=== PATIENT | male | born 1950 | race Caucasian/White ===

== ENCOUNTER → 2018-01-31 10:34 | Outpatient (CLI) | payer OTHER, SELFPAY ==
[2018-01-31 11:06] LABS: Add Manual Diff / Slide Review NO; Basophils Percent Auto 0.3 % (0-2); Eosinophils Percent Auto 0.8 % (2-4); Hematocrit 41.9 % (41-53); Hemoglobin 14.3 g/dL (13.5-17.5); Lymphocytes Percent Auto 26.3 % (25-40); Mean Corpuscular HGB Conc 34.1 % (30-36); Mean Corpuscular Hemoglobin 32.3 PG (26-34); Mean Corpuscular Volume 94.7 fL (80-100); Monocytes Percent Auto 6.9 % (3-14); Neutrophils Absolute Auto 3100 /uL (3000-5900); Neutrophils Percent Auto 65.7 % (50-75); Platelet Count 194 X10^3/uL (150-400); Red Blood Cell Count 4.43 X10^6/uL (4.5-5.9); Red Cell Distribution Width 13.4 % (11.6-14.8); White Blood Cell Count 4.8 X10^3/uL (4.5-11.0)
[2018-01-31 11:34] LABS: Alanine Aminotransferase 18 IU/L (21-72); Albumin 4.1 g/dL (3.5-5.0); Albumin Globulin Ratio 1.3 (1.0-2.8); Alkaline Phosphatase 42 U/L (38-126); Aspartate Aminotransferase 24 IU/L (17-59); BUN Creatinine Ratio 23.8 (6-22); Bilirubin Total 1.8 mg/dL (0.2-1.3); Calcium 9.1 mg/dL (8.4-10.2); Estimated Glomerular Filt Rate > 60.0 mL/min (>60); Globulin 3.1 g/dL (1.7-4.1); Glucose 105 mg/dL (80-110); HEMOLYSIS 27 (0-50); Potassium 4.3 mmol/L (3.4-5.1); Sodium 143 mmol/L (137-145); Total Protein 7.2 g/dL (6.3-8.2)
[2018-01-31 12:05] LABS: Carcinoembryonic Antigen 1.1 ng/mL (0.1-3.0)
== END ==
PROVIDERS: Family Provider Specialist; PCP Family Medicine; Visit Provider Internal Medicine Hematology & Oncology
DX: C18.9 Malignant neoplasm of colon, unspecified (principal)
CPT/HCPCS: 80053; 82378; 85025

== ENCOUNTER → 2018-08-09 10:36 | Outpatient (CLI) | payer OTHER, SELFPAY ==
--- NOTE | 2018-08-09 10:40 | DI.CT.S_ITS ---
PROCEDURE: CT CHEST ABD PEL W CON INDICATIONS: Stage II colon cancer resected Jun 2016 TECHNIQUE: After the administration of oral and intravenous contrast, 5 mm thick sections acquired from the lung apices to the symphysis. 5 mm coronal and sagittal reformats were performed, with additional 7 mm coronal MIP reformats through the lungs. For radiation dose reduction, the following was used: automated exposure control, adjustment of mA and/or kV according to patient size. COMPARISON: [facility], CT, ABDOMEN/PELVIS WITH CONTRAST, 06/17/2016, 11:45. [facility], CT, CHEST/ABD/PEL WITH CONTRAST, 07/04/2017, 15:05. FINDINGS: Image quality: Excellent. CHEST: Lungs and pleura: No acute airspace opacities. No pleural effusions or pneumothorax. Central and peripheral airways appear patent and normal in caliber. Previous groundglass opacity in the right middle lobe has resolved. There is an unchanged 6 mm nodule along the right major fissure. Mediastinum: Heart size is normal. No pericardial effusion. No mediastinal or hilar adenopathy by size criteria. Thoracic aorta and central pulmonary arteries are normal in size. Esophagus is normal in caliber. No hiatal hernia. Chest wall: No axillary or supraclavicular adenopathy by size criteria. Thyroid gland demonstrates unchanged right inferior lobe low attenuation focus as well as a similar smaller area in the inferior anterior left lobe/isthmus junction. ABDOMEN: Solid organs: Liver is mildly prominent. Hepatic steatosis is present. Gallbladder is unremarkable. Biliary system is non dilated. Pancreas enhances normally. Spleen is borderline in size, unchanged. No adrenal nodules. Kidneys demonstrate normal size and enhancement, without hydronephrosis. Peritoneum and bowel: Bowel loops demonstrate normal wall thickness and caliber. No free fluid or air. Right hemicolectomy changes are present. Nodes and vessels: No retroperitoneal or mesenteric adenopathy by size criteria. Aorta and inferior vena cava are normal in size. Miscellaneous: No ventral hernias. PELVIS: Genitourinary: Bladder wall thickness is normal. Miscellaneous: No inguinal hernias or adenopathy. Bones: No suspicious bony lesions. No vertebral body compression fractures. IMPRESSION: 1. Stable exam compared to 07/04/17 without evidence of recurrent disease. 2. Unchanged 6 mm nodule along the right major fissure. 3. Postsurgical changes reflecting right hemicolectomy. Dictated by: Carlota Andrews M.D. on 08/09/2018 at 15:07 Approved by: Carlota Andrews M.D. on 08/09/2018 at 15:40
[2018-08-09 11:06] LABS: Add Manual Diff / Slide Review NO; Basophils Percent Auto 0.3 % (0-2); Hematocrit 42.8 % (41-53); Hemoglobin 14.9 g/dL (13.5-17.5); Lymphocytes Percent Auto 27.8 % (25-40); Mean Corpuscular HGB Conc 34.8 % (30-36); Mean Corpuscular Hemoglobin 32.7 PG (26-34); Mean Corpuscular Volume 93.9 fL (80-100); Monocytes Percent Auto 8.3 % (3-14); Neutrophils Absolute Auto 3500 /uL (3000-5900); Neutrophils Percent Auto 62.6 % (50-75); Platelet Count 204 X10^3/uL (150-400); Red Blood Cell Count 4.56 X10^6/uL (4.5-5.9); Red Cell Distribution Width 12.8 % (11.6-14.8); White Blood Cell Count 5.6 X10^3/uL (4.5-11.0)
[2018-08-09 11:21] LABS: Alanine Aminotransferase 24 IU/L (21-72); Albumin 4.5 g/dL (3.5-5.0); Albumin Globulin Ratio 1.6 (1.0-2.8); Alkaline Phosphatase 47 U/L (38-126); Aspartate Aminotransferase 25 IU/L (17-59); Bilirubin Total 2.1 mg/dL (0.2-1.3); Blood Urea Nitrogen 16 mg/dL (9-20); Calcium 9.2 mg/dL (8.4-10.2); Carbon Dioxide 29 mmol/L (22-32); Chloride 105 mmol/L (98-107); Estimated Glomerular Filt Rate > 60.0 mL/min (>60); Globulin 2.8 g/dL (1.7-4.1); Glucose 97 mg/dL (80-110); HEMOLYSIS < 15 (0-50); Potassium 4.5 mmol/L (3.4-5.1); Sodium 145 mmol/L (137-145); Total Protein 7.3 g/dL (6.3-8.2)
[2018-08-09 11:52] LABS: Carcinoembryonic Antigen 1.2 ng/mL (0.1-3.0)
== END ==
PROVIDERS: Internal Medicine Hematology & Oncology; Family Provider Internal Medicine Hematology & Oncology; PCP Family Medicine; Visit Provider Internal Medicine Hematology & Oncology
DX: C18.9 Malignant neoplasm of colon, unspecified (principal); R91.1 Solitary pulmonary nodule; K76.0 Fatty (change of) liver, not elsewhere classified
CPT/HCPCS: 36415; 71260; 74177; 80053; 82378; 85025; Q9967

== ENCOUNTER → 2019-08-15 10:54 | Outpatient (CLI) | payer OTHER, SELFPAY ==
--- NOTE | 2019-08-15 10:56 | DI.CT.S_ITS ---
PROCEDURE: CT CHEST ABD PEL W CON INDICATIONS: Colon cancer surveillance TECHNIQUE: After the administration of oral and intravenous contrast, 5 mm thick sections acquired from the lung apices to the symphysis. 5 mm coronal and sagittal reformats were performed, with additional 7 mm coronal MIP reformats through the lungs. For radiation dose reduction, the following was used: automated exposure control, adjustment of mA and/or kV according to patient size. COMPARISON: [facility], CT, CT CHEST ABD PEL W CON, 08/09/2018, 11:52. FINDINGS: Image quality: Excellent. CHEST: Lungs and pleura: No acute airspace opacities. Right major fissure lymph node. No pleural effusions or pneumothorax. Central and peripheral airways appear patent and normal in caliber. Mediastinum: Heart size is normal. Mild coronary artery calcification. No pericardial effusion. Stable, small right infrahilar lymph node. No mediastinal or hilar adenopathy by size criteria. Thoracic aorta and central pulmonary arteries are normal in size. Esophagus is normal in caliber. No hiatal hernia. Chest wall: No axillary or supraclavicular adenopathy by size criteria. Thyroid gland is stable. ABDOMEN: Solid organs: Liver is normal in size and enhancement. Gallbladder is unremarkable. Biliary system is non dilated. Pancreas enhances normally. Spleen is normal in size and enhancement. No adrenal nodules. Kidneys demonstrate normal size and enhancement, without hydronephrosis. Peritoneum and bowel: Surgical changes of right hemicolectomy. Bowel loops demonstrate normal wall thickness and caliber. No free fluid or air. Nodes and vessels: No retroperitoneal or mesenteric adenopathy by size criteria. Aorta and inferior vena cava are normal in size. Miscellaneous: No ventral hernias. PELVIS: Genitourinary: The urinary bladder is decompressed.. Surgical changes of prostatectomy. Miscellaneous: No inguinal hernias or adenopathy. Bones: No suspicious bony lesions. No vertebral body compression fractures. Degenerative changes in the hip joints. IMPRESSION: 1. Post prostatectomy and right hemicolectomy without evidence of local recurrence or metastatic disease. 2. Mild coronary artery calcification. Dictated by: Neisha Gill M.D. on 08/15/2019 at 14:35 Approved by: Neisha Gill M.D. on 08/15/2019 at 14:44
[2019-08-15 12:10] LABS: Add Manual Diff / Slide Review NO; Basophils Absolute Auto 0 /uL (0-100); Basophils Percent Auto 0.3 % (0-2); Eosinophils Absolute Auto 0 /uL (0-450); Eosinophils Percent Auto 0.7 % (2-4); Hemoglobin 14.4 g/dL (13.5-17.5); Lymphocytes Absolute Auto 1500 /uL (1100-4500); Lymphocytes Percent Auto 26.6 % (25-40); Mean Corpuscular HGB Conc 34.3 % (30-36); Mean Corpuscular Hemoglobin 32.5 PG (26-34); Mean Corpuscular Volume 94.8 fL (80-100); Monocytes Absolute Auto 400 /uL (0-900); Monocytes Percent Auto 7.6 % (3-14); Neutrophils Absolute Auto 3700 /uL (1500-7000); Neutrophils Percent Auto 64.8 % (50-75); Platelet Count 201 X10^3/uL (150-400); Red Blood Cell Count 4.43 X10^6/uL (4.5-5.9); Red Cell Distribution Width 12.7 % (11.6-14.8); White Blood Cell Count 5.8 X10^3/uL (4.5-11.0)
[2019-08-15 12:20] LABS: Alanine Aminotransferase 12 IU/L (<50); Albumin 4.3 g/dL (3.5-5.0); Albumin Globulin Ratio 1.5 (1.0-2.8); Alkaline Phosphatase 46 U/L (38-126); Aspartate Aminotransferase 22 IU/L (17-59); Blood Urea Nitrogen 16 mg/dL (9-20); Calcium 9.3 mg/dL (8.4-10.2); Carbon Dioxide 30 mmol/L (22-32); Chloride 102 mmol/L (98-107); Estimated Glomerular Filt Rate > 60.0 mL/min (>60); Globulin 2.8 g/dL (1.7-4.1); Glucose 96 mg/dL (80-110); HEMOLYSIS < 15 (0-50); Sodium 140 mmol/L (137-145); Total Protein 7.1 g/dL (6.3-8.2)
[2019-08-15 12:53] LABS: Carcinoembryonic Antigen 1.1 ng/mL (0.1-3.0)
== END ==
PROVIDERS: PCP Family Medicine
DX: C18.9 Malignant neoplasm of colon, unspecified (principal); I25.10 Atherosclerotic heart disease of native coronary artery without angina pectoris
CPT/HCPCS: 36415; 71260; 74177; 80053; 82378; 85025; Q9967

== ENCOUNTER → 2020-10-28 11:17 | Outpatient (CLI) | payer MEDICARE, OTHER, SELFPAY ==
--- NOTE | 2020-10-28 11:18 | DI.CT.S_ITS ---
PROCEDURE: CT CHEST ABD PEL W CON INDICATIONS: Monitoring stage II colon cancer TECHNIQUE: After the administration of oral and intravenous contrast, 5 mm thick sections acquired from the lung apices to the symphysis. 5 mm coronal and sagittal reformats were performed, with additional 7 mm coronal MIP reformats through the lungs. For radiation dose reduction, the following was used: automated exposure control, adjustment of mA and/or kV according to patient size. COMPARISON: [facility], CT, CT CHEST ABD PEL W CON, 08/09/2018, 11:52. [facility], CT, CHEST/ABD/PEL WITH CONTRAST, 07/04/2017, 15:05. CT, ABDOMEN/PELVIS WITH CONTRAST, 06/17/2016, 11:45. [facility], CT, CT CHEST ABD PEL W CON, 08/15/2019, 12:22. FINDINGS: Image quality: Excellent. CHEST: Lungs and pleura: No acute airspace opacities. No pleural effusions or pneumothorax. Central and peripheral airways appear patent and normal in caliber. Mediastinum: Heart size is normal. No pericardial effusion. No mediastinal or hilar adenopathy by size criteria. Thoracic aorta and central pulmonary arteries are normal in size. Esophagus is normal in caliber. No hiatal hernia. Chest wall: No axillary or supraclavicular adenopathy by size criteria. Thyroid gland demonstrates a punctate calcification within the inferior left lower lobe, unchanged . ABDOMEN: Solid organs: Liver is normal in size and enhancement. Gallbladder is unremarkable . Biliary system is non dilated. Pancreas enhances normally. Spleen is normal in size and enhancement. No adrenal nodules. Kidneys demonstrate normal size and enhancement, without hydronephrosis. Peritoneum and bowel: Bowel loops demonstrate normal wall thickness and caliber. No free fluid or air. Diverticulosis is present. Surgical changes reflecting right hemicolectomy in prostatectomy are noted. Nodes and vessels: No retroperitoneal or mesenteric adenopathy by size criteria. Aorta and inferior vena cava are normal in size. Miscellaneous: No ventral hernias. PELVIS: Genitourinary: Bladder wall thickness is normal. Miscellaneous: No inguinal hernias or adenopathy. Bones: Unchanged punctate lucency at the level of L3 in the right posterior vertebral body, unchanged since 2016 and likely related to degenerative change. No vertebral body compression fractures. IMPRESSION: 1. Stable interval exam. 2. Diverticulosis. Dictated by: Carlota Andrews M.D. on 10/28/2020 at 15:08 Approved by: Carlota Andrews M.D. on 10/28/2020 at 15:14
== END ==
PROVIDERS: PCP Family Medicine; Referring Provider Internal Medicine; Visit Provider Internal Medicine
DX: C18.9 Malignant neoplasm of colon, unspecified (principal); K57.90 Diverticulosis of intestine, part unspecified, without perforation or abscess without bleeding
CPT/HCPCS: 71260; 74177; Q9967

== ENCOUNTER → 2020-11-17 13:15 | Outpatient (CLI) | payer MEDICARE, OTHER, SELFPAY ==
[2020-11-17 14:54] LABS: COVID19 -Nasal RAPID Negative (Negative)
== END ==
PROVIDERS: PCP Family Medicine; Visit Provider Surgery
DX: Z20.822 Contact with and (suspected) exposure to COVID-19 (principal)
CPT/HCPCS: 87635; C9803

== ENCOUNTER 2020-11-20 12:01 | Day surgery (SDC) | payer MEDICARE, OTHER, SELFPAY ==
[2020-11-20] VITALS (7 sets, daily range): BP systolic 104–129; BP diastolic 63–77; PULSE 71–98; RESP 10–17; TEMP 36.4–37; O2SAT 97–99; BMI 23.0
--- NOTE | 2020-11-20 | PATH_ITS ---
[facility] Accession Number: [id number] . 01 Material submitted: . PART A: colon - POLYP AT 100 PART B: rectum - RECTAL POLYP . 01 Clinical history: . SDC . 02 Diagnosis: A. Colon Polyp at 100 cm, Biopsy: Tubular adenoma. . B. Rectal Polyp, Biopsy: Hyperplastic polyp. MRV 11/24/2020 1223 Local . 02 Electronically signed: . Erich Martin MD, PhD, Pathologist NPI- [id number] . 01 Gross description: . A. Specimen A is received in formalin labeled polyp at 100 cm and consists of four fitch-pink fragments of soft tissue, measuring 1.0 x 0.8 x 0.2 cm in aggregate. The specimen is entirely submitted in cassette A1. B. Specimen B is received in formalin labeled rectal polyp and consists of two fitch-pink fragments of soft tissue, measuring 0.6 x 0.5 x 0.2 cm in aggregate. The specimen is entirely submitted in cassette B1. ([id number]) /[facility] 11/21/2020 1813 Local . 02 Pathologist provided ICD-10: D12.6, K62.1 . 02 CPT . 851406, 241700 Performed at: 01 [facility] [address], [place], [place] [id number] MD Jacinto Luke MD Phone: [phone] Performed at: 02 [facility] [address] [place], [place] [id number] MD Neha Dia MD Phone: [phone]
[2020-11-20] MEDS: LACTATED RINGERS 1,000 ML 200 ML IV (12:29)
--- NOTE | 2020-11-20 13:02 | PM.HP.1 ---
History of Present Illness History of Present Illness Date Patient Seen: 11/20/20 Time Patient Seen: 13:02 Chief complaint: SDC Narrative: The patient presents for colorectal sreening. History of stage II colon cancer status post right hemicolectomy 2013 at an outside facility has been followed by Oncology for surveillance. Last colonoscopy 2016 demonstrated adenomatous polyp. On further history denies any recent gastrointestinal symptoms. No nausea, vomiting, abdominal pain, loss of appetite, unexplained weight loss, change in bowel habits, diarrhea, constipation, melena, hematochezia, or bright red blood per rectum. Patient History Medical History Colon cancer Prostate cancer Surgical History H/O colectomy Family & Social History Social History: household members spouse Tobacco & Substance use: Smoking Status Never smoker alcohol intake current alcohol intake frequency 0-2 drinks per day Substance Use Type does not use Meds Home Medications and Allergies Home Medications Medication Instructions Recorded Confirmed Type OMEGA-3 FATTY ACIDS (FISH OIL) 500 mg PO Q DAY #0 07/29/16 11/20/20 History cholecalciferol (vitamin D3) 50 mcg PO DAILY 10/21/20 11/20/20 History [Vitamin D3] Allergies Allergy/AdvReac Type Severity Reaction Status Date / Time No Known Drug Allergies Allergy Verified 11/20/20 12:18 Review of Systems Review of Systems ROS: Yes All systems reviewed with the patient and are negative except as otherwise documented Exam Vital Signs (past 8 hours): - 11/20/20 12:20 Temperature 98.4 F Pulse Rate 98 H Respiratory Rate 16 Blood Pressure 127/68 Pulse Oximetry 99 Oxygen Delivery Method Room Air Narrative Exam Narrative: General-no acute distress, well nourished adult male HEENT-moist mucous membranes, no scleral icterus Neck-supple, no lymphadenopathy Chest- non labored respirations, clear to auscultation bilaterally Cardiac-regular rate no peripheral edema Abdomen-soft, nontender, non distended Extremities-warm, well perfused Neurological-alert and oriented, no focal deficits Assessment & Plan Assessment & Plan narrative: 70-year-old male who history of stage II colon cancer 2014 status post right hemicolectomy here for screening colonoscopy. Technical details were discussed. Risks, benefits, alternatives explained. Risks including but not limited to myocardial infarction, aspiration, bleeding, pain, missed lesion, incomplete examination, need for further radiographic studies, colonic perforation, and need for major abdominal surgery were discussed. All questions were answered to their satisfaction, and they are in agreement with this plan.
[2020-11-20] MEDS: MIDAZOLAM 5 MG/5 ML VIAL IV (13:13)
[2020-11-20] MEDS: fentaNYL 250 MCG/5 ML INJ IV (13:15)
--- NOTE | 2020-11-20 13:34 | P.OP.ENDO_ITS ---
Operative Date/Time/Diagnoses Date of procedure: 11/20/20 Time of procedure: 13:34 Pre-op diagnosis: hx of colon cancer, personal history of colonic polyps Post-op diagnosis: same Procedure & Clinicians Study performed: Colonoscopy Polypectomy Same procedure as scheduled: Yes Indications: 70-year-old man history of right-sided colon cancer stage II 2014 status post hemicolectomy and personal history of colonic polyps last colonoscopy was 2016. Surgeon: Kyle Ch Procedure Notes Procedure in detail: Medications: Conscious sedation using 4mg IV midazolam and 150mcg IV of fentanyl The history and physical was performed/updated and the patient is ASA class is 2. The procedure was discussed in detail with the patient. Potential risks complications including infection, bleeding, missed diagnosis, perforation, need for surgery, and were explained. Their questions were answered and informed consent was obtained. Patient was brought to the procedure room and placed standard monitoring equipment. The patient's vital signs were monitored continuously throughout the entire procedure. Prior to starting time-out was performed. The patient was placed in the left lateral recumbent position. Procedural sedation was ad ministered. Examination began with a thorough inspection of the perianal area there was no evidence of fissures, fistulae, external hemorrhoids or cutaneous malignancy. The colonoscopy scope was then placed into the anal canal and was advanced to the end of the colon. There appeared to be a [id number] anastomosis between the cecum and small bowel. The scope was then slowly withdrawn examining colon thoroughly in all directions, irrigating it of any residual stool. 5 mm polyp at 100 cm was removed with biopsy forceps 3 mm polyp at the distal rectum removed with biopsy forceps The patient tolerated the procedure well. They will be discharged once criteria are met. The prep was of good/excellent quality. The withdrawl time was 12 minutes. The sedation time was 24 minutes. Specimen(s): other (100 cm, rectal polyps) Complications: none Impression: Colonic polyps Post-procedure Recommendations: Colonscopy in 5 years Disposition: same day surgery
== END 2020-11-20 14:30 | disposition home or self-care (01) ==
PROVIDERS: PCP Family Medicine; Referring Provider Surgery; Visit Provider Surgery
PROC: 0DJD8ZZ Inspection of Lower Intestinal Tract, Via Natural or Artificial Opening Endoscopic (ICD-10-PCS; CPT 45378; principal; 2020-11-20 13:00)
DX: Z12.11 Encounter for screening for malignant neoplasm of colon (principal); Z85.038 Personal history of other malignant neoplasm of large intestine; Z86.010 Personal history of colon polyps; D12.6 Benign neoplasm of colon, unspecified; K62.1 Rectal polyp
CPT/HCPCS: 45380; 99152; J2250; J3010

== ENCOUNTER → 2021-05-05 19:15 | Outpatient (ROUT) | payer MEDICARE, OTHER, SELFPAY ==
[2021-05-05 19:37] LABS: Add Manual Diff / Slide Review NO; Basophils Absolute Auto 0 /uL (0-100); Basophils Percent Auto 0.3 % (0-2); Eosinophils Absolute Auto 0 /uL (0-450); Eosinophils Percent Auto 0.6 % (2-4); Hematocrit 43.9 % (41-53); Hemoglobin 14.5 g/dL (13.5-17.5); Lymphocytes Absolute Auto 1300 /uL (1100-4500); Lymphocytes Percent Auto 20.7 % (25-40); Mean Corpuscular Hemoglobin 31.7 PG (26-34); Monocytes Absolute Auto 500 /uL (0-900); Monocytes Percent Auto 8.4 % (3-14); Neutrophils Absolute Auto 4500 /uL (1500-7000); Platelet Count 202 X10^3/uL (150-400); Red Blood Cell Count 4.57 X10^6/uL (4.5-5.9); Red Cell Distribution Width 13.1 % (11.6-14.8); White Blood Cell Count 6.5 X10^3/uL (4.5-11.0)
[2021-05-05 19:38] LABS: Alanine Aminotransferase 13 IU/L (<50); Albumin 4.2 g/dL (3.5-5.0); Albumin Globulin Ratio 1.4 (1.0-2.8); Alkaline Phosphatase 54 U/L (38-126); Aspartate Aminotransferase 25 IU/L (17-59); BUN Creatinine Ratio 27.1 (6-22); Bilirubin Total 2.1 mg/dL (0.2-1.3); Blood Urea Nitrogen 19 mg/dL (9-20); Calcium 9.7 mg/dL (8.4-10.2); Carbon Dioxide 29 mmol/L (22-32); Chloride 104 mmol/L (98-107); Estimated Glomerular Filt Rate > 60.0 mL/min (>60); Glucose 95 mg/dL (80-110); HEMOLYSIS < 15 (0-50); Potassium 4.3 mmol/L (3.4-5.1); Sodium 139 mmol/L (137-145); Total Protein 7.2 g/dL (6.3-8.2)
[2021-05-05 20:09] LABS: Carcinoembryonic Antigen 1.2 ng/mL (0.1-3.0)
[2021-05-05 20:10] LABS: Prostate Specific Antigen < 0.064 ng/mL (0.10-4.00)
== END ==
PROVIDERS: PCP Family Medicine; Visit Provider Internal Medicine Medical Oncology
DX: C61 Malignant neoplasm of prostate (principal)
CPT/HCPCS: 80053; 82378; 84153; 85025

== ENCOUNTER → 2023-06-16 09:59 | Outpatient (CLI) | payer MEDICARE, OTHER, SELFPAY ==
[2023-06-16 19:42] LABS: Add Manual Diff / Slide Review NO; Basophils Absolute Auto 0 /uL (0-100); Basophils Percent Auto 0.3 % (0-2); Eosinophils Absolute Auto 100 /uL (0-450); Hematocrit 40.9 % (41-53); Hemoglobin 14.1 g/dL (13.5-17.5); Lymphocytes Absolute Auto 1500 /uL (1100-4500); Lymphocytes Percent Auto 22.4 % (25-40); Mean Corpuscular HGB Conc 34.4 % (30-36); Mean Corpuscular Hemoglobin 31.8 PG (26-34); Mean Corpuscular Volume 92.5 fL (80-100); Monocytes Absolute Auto 500 /uL (0-900); Monocytes Percent Auto 7.4 % (3-14); Neutrophils Absolute Auto 4600 /uL (1500-7000); Neutrophils Percent Auto 68.9 % (50-75); Platelet Count 225 X10^3/uL (150-400); Red Blood Cell Count 4.42 X10^6/uL (4.5-5.9); Red Cell Distribution Width 12.7 % (11.6-14.8); White Blood Cell Count 6.7 X10^3/uL (4.5-11.0)
[2023-06-16 19:47] LABS: Alanine Aminotransferase 9 IU/L (<50); Albumin 3.9 g/dL (3.5-5.0); Albumin Globulin Ratio 1.3 (1.0-2.8); Alkaline Phosphatase 62 U/L (38-126); Aspartate Aminotransferase 23 IU/L (17-59); BUN Creatinine Ratio 28.9 (6-22); Bilirubin Total 1.8 mg/dL (0.2-1.3); Blood Urea Nitrogen 22 mg/dL (9-20); C-Reactive Protein Quant < 0.5 mg/dL (<1.0); Calcium 9.4 mg/dL (8.4-10.2); Carbon Dioxide 30 mmol/L (22-32); Chloride 103 mmol/L (98-107); Estimated Glomerular Filt Rate > 60 mL/min (>60); Glucose 93 mg/dL (80-110); HEMOLYSIS 23 (0-50); Potassium 4.2 mmol/L (3.4-5.1); Sodium 140 mmol/L (137-145); Total Protein 6.9 g/dL (6.3-8.2)
[2023-06-16 20:15] LABS: Prostate Specific Antigen 0.107 ng/mL (0.10-4.00)
[2023-06-16 20:17] LABS: TSH w/ Reflex to FT4 2.04 uIU/mL (0.47-4.68)
[2023-06-16 20:48] LABS: Erythrocyte Sedimentation Rate 9 MM/HR (0-15)
[2023-06-20 16:54] LABS: Hep C Virus Ab w/Reflex Quant NEGATIVE s/c (NEGATIVE)
== END ==
PROVIDERS: PCP Family Medicine; Visit Provider Family Medicine
DX: Z85.46 Personal history of malignant neoplasm of prostate (principal); G24.5 Blepharospasm; R53.83 Other fatigue; Z85.038 Personal history of other malignant neoplasm of large intestine; Z13.1 Encounter for screening for diabetes mellitus; Z11.59 Encounter for screening for other viral diseases; Z13.220 Encounter for screening for lipoid disorders; M79.10 Myalgia, unspecified site
CPT/HCPCS: 80053; 84153; 84443; 85025; 85651; 86140; 86803

== ENCOUNTER → 2025-01-17 12:55 | Outpatient (CLI) | payer MEDICARE, OTHER, SELFPAY ==
[2025-01-17 13:16] LABS: Hemoglobin 8.4 g/dL (13.5-17.5)
== END ==
PROVIDERS: PCP Family Medicine; Referring Provider Internal Medicine Nephrology; Visit Provider Internal Medicine Nephrology
DX: N17.0 Acute kidney failure with tubular necrosis (principal); Z99.2 Dependence on renal dialysis
CPT/HCPCS: 36415; 85014; 85018

== ENCOUNTER → 2025-01-30 14:37 | Outpatient (CLI) | payer MEDICARE, OTHER, SELFPAY ==
[2025-01-30 20:30] LABS: HEMOLYSIS < 15 (0-50); Iron 75 ug/dL (49-181)
[2025-01-30 20:36] LABS: Alanine Aminotransferase 12 IU/L (<50); Albumin 3.1 g/dL (3.5-5.0); Albumin Globulin Ratio 1.1 (1.0-2.8); Alkaline Phosphatase 64 U/L (38-126); Aspartate Aminotransferase 18 IU/L (17-59); Bilirubin Total 0.6 mg/dL (0.2-1.3); Bilirubin Unconjugated 0.3 mg/dL (0.0-1.1); Globulin 2.9 g/dL (1.7-4.1); HEMOLYSIS < 15 (0-50)
[2025-01-30 21:07] LABS: Percent Iron Saturation 34 % (20-50); Total Iron Binding Capacity 222 ug/dL (261-462); Transferrin 164 mg/dL (206-381)
[2025-01-30 21:25] LABS: TSH w/ Reflex to FT4 3.37 uIU/mL (0.47-4.68)
[2025-01-30 21:44] LABS: Vitamin B12 429 pg/mL (239-931)
== END ==
PROVIDERS: PCP Family Medicine; Visit Provider Family Medicine
DX: D64.9 Anemia, unspecified (principal); N17.9 Acute kidney failure, unspecified
CPT/HCPCS: 80076; 82607; 83540; 83550; 84443

== ENCOUNTER → 2025-02-06 14:00 | Outpatient (CLI) | payer MEDICARE, OTHER, SELFPAY ==
[2025-02-08 13:40] LABS: Fecal Immunochemical Test Positive (Negative)
== END ==
PROVIDERS: PCP Family Medicine; Visit Provider Family Medicine
DX: N17.9 Acute kidney failure, unspecified (principal); D64.9 Anemia, unspecified
CPT/HCPCS: 82274

== ENCOUNTER 2025-02-08 10:22 | Emergency (ER) | payer MEDICARE, OTHER, SELFPAY ==
[2025-02-08] VITALS (21 sets, daily range): BP systolic 121–168; BP diastolic 57–81; PULSE 60–84; RESP 13–24; TEMP 36.4–36.9; O2SAT 99–100; BMI 22.1
[2025-02-08 11:06] LABS: Add Manual Diff / Slide Review NO; Basophils Absolute Auto 0 /uL (0-100); Basophils Percent Auto 0.2 % (0-2); Eosinophils Absolute Auto 100 /uL (0-450); Eosinophils Percent Auto 1.4 % (2-4); Hemoglobin 7.1 g/dL (13.5-17.5); Lymphocytes Absolute Auto 1500 /uL (1100-4500); Lymphocytes Percent Auto 22.9 % (25-40); Mean Corpuscular Hemoglobin 33.6 PG (26-34); Mean Corpuscular Volume 96.1 fL (80-100); Monocytes Absolute Auto 700 /uL (0-900); Neutrophils Absolute Auto 4300 /uL (1500-7000); Neutrophils Percent Auto 64.5 % (50-75); Platelet Count 203 X10^3/uL (150-400); Red Cell Distribution Width 15.4 % (11.6-14.8); White Blood Cell Count 6.6 X10^3/uL (4.5-11.0)
[2025-02-08 11:08] LABS: Hematocrit 20.2 % (41-53)
[2025-02-08 11:17] LABS: INR 1.1 (0.9-1.3); Prothrombin Time 12.4 SECONDS (9.4-12.5)
[2025-02-08 11:19] LABS: PTT Partial Thromboplastin Tim 33 SECONDS (25.1-36.5)
--- NOTE | 2025-02-08 14:19 | ED_ITS ---
HPI - Recheck/Abnormal Lab/Rx <Pao Mas MD - Last Filed: 02/10/25 16:46> General Chief Complaint: Recheck/Abnormal Lab/Rx Stated Complaint: on dialysis, hgb 6.5 on recent labs sent from dr. Castellanos Seen by Provider: 02/08/25 14:13 Source: patient and RN notes reviewed History of Present Illness HPI narrative: 75-year-old male history of end-stage renal disease on intermittent hemodialysis, presenting to the ED with low hemoglobin. Patient reports had some routine labs done today and was found to have a hemoglobin of 6.5, was referred to ED by his event technician. He denies any increased weakness or fatigue, exertional dyspnea. Denies any black tarry stools. He has no complaints today Related Data Home Medications Medication Instructions Recorded Confirmed brimonidine 0.2 % eye drops drp EYE-BOTH TID 01/22/25 01/23/25 dorzolamide 2 %-timolol 0.5 % (PF) drp EYE-BOTH BID 01/22/25 01/23/25 eye drops latanoprost 0.005 % eye drops drp EYE-BOTH DAILY 01/22/25 01/23/25 midodrine 10 mg tablet 10 mg PO TID 01/22/25 01/23/25 Previous Rx's Medication Instructions Recorded albuterol sulfate 90 mcg/actuation 2 puff inhalation Q6H PRN 01/23/25 aerosol inhaler shortness of breath or wheezing #8.5 grams amiodarone 200 mg tablet 200 mg PO DAILY #30 tabs 01/23/25 sevelamer carbonate 0.8 gram oral See Rx Instructions .Route 01/23/25 powder packet .COMPLEX #90 ea apixaban 5 mg tablet 5 mg PO BID #10 tabs 02/06/25 Allergies Allergy/AdvReac Type Severity Reaction Status Date / Time No Known Drug Allergies Allergy Verified 01/23/25 08:03 Patient History <Pao Mas MD - Last Filed: 02/10/25 16:46> Surgical History H/O colectomy Social History household members: spouse Smoking Status: Never smoker alcohol intake: current Smoking Status: Never smoker alcohol intake frequency: 0-2 drinks per day Exam <Pao Mas MD - Last Filed: 02/10/25 16:46> Initial Vital Signs Initial Vital Signs: Vital Signs Temperature 98.4 F 02/08/25 10:29 Pulse Rate 82 02/08/25 10:29 Respiratory Rate 18 02/08/25 10:29 Blood Pressure 127/71 02/08/25 10:29 Pulse Oximetry 99 02/08/25 10:29 Oxygen Delivery Method Room Air 02/08/25 10:29 Constitutional: Well appearing, no acute distress Head: NCAT Cardiovascular: RRR, no murmur or rub Pulmonary: CTA bilaterally, no respiratory distress Abdominal: soft, non-tender Extremities: 2+ pitting edema lower extremities Skin: warm and dry, no diaphoresis Neurological: Alert and oriented x3 <Marianne Fontaine DO - Last Filed: 02/08/25 20:26> Initial Vital Signs Initial Vital Signs: Vital Signs Temperature 98.4 F 02/08/25 10:29 Pulse Rate 82 02/08/25 10:29 Respiratory Rate 18 02/08/25 10:29 Blood Pressure 127/71 02/08/25 10:29 Pulse Oximetry 99 02/08/25 10:29 Oxygen Delivery Method Room Air 02/08/25 10:29 Course <Pao Mas MD - Last Filed: 02/10/25 16:46> Orders Ordered: Discontinued Medications Ondansetron HCl (Ondansetron 4 Mg/2 Ml Inj) 4 mg IV NOW PRN PRN Reason: Nausea And Vomiting Ondansetron HCl (Ondansetron 4 Mg Odt) 4 mg PO NOW PRN PRN Reason: Nausea And Vomiting Vital Signs Vital signs: Vital Signs - 8 hr 02/08/25 13:56 02/08/25 14:00 02/08/25 14:22 Temperature Pulse Rate 77 81 Respiratory Rate 24 Blood Pressure 133/61 Pulse Oximetry 99 100 02/08/25 14:22 02/08/25 14:30 02/08/25 14:30 Temperature Pulse Rate 81 78 Respiratory Rate 20 16 Blood Pressure 121/62 Pulse Oximetry 100 100 02/08/25 15:00 02/08/25 15:00 02/08/25 15:28 Temperature Pulse Rate 78 Respiratory Rate Blood Pressure 123/57 L 136/65 Pulse Oximetry 100 02/08/25 15:28 02/08/25 15:30 02/08/25 15:30 Temperature Pulse Rate 80 81 Respiratory Rate 15 13 Blood Pressure 131/64 Pulse Oximetry 100 100 02/08/25 15:37 02/08/25 15:37 02/08/25 15:42 Temperature 98 F 98 F Pulse Rate 79 79 Respiratory Rate 16 16 Blood Pressure 131/64 131/64 126/63 Pulse Oximetry 02/08/25 15:42 02/08/25 15:45 02/08/25 15:45 Temperature Pulse Rate 79 80 Respiratory Rate 13 15 Blood Pressure 128/61 Pulse Oximetry 100 100 02/08/25 15:56 02/08/25 16:00 02/08/25 16:00 Temperature 97.6 F Pulse Rate 60 80 Respiratory Rate 16 14 Blood Pressure 128/61 129/62 Pulse Oximetry 100 02/08/25 16:15 02/08/25 16:15 02/08/25 16:30 Temperature Pulse Rate 80 76 Respiratory Rate 13 Blood Pressure 128/60 Pulse Oximetry 100 100 02/08/25 16:30 02/08/25 16:45 02/08/25 16:45 Temperature Pulse Rate 80 Respiratory Rate 18 Blood Pressure 137/69 130/64 Pulse Oximetry 100 02/08/25 17:00 02/08/25 17:00 02/08/25 17:30 Temperature Pulse Rate 78 Respiratory Rate 16 Blood Pressure 145/71 H 152/81 H Pulse Oximetry 100 02/08/25 17:30 02/08/25 17:34 02/08/25 17:49 Temperature 98 F 98.4 F Pulse Rate 80 80 74 Respiratory Rate 14 16 16 Blood Pressure 152/81 H 150/74 H Pulse Oximetry 100 02/08/25 20:05 Temperature 97.9 F Pulse Rate 84 Respiratory Rate 16 Blood Pressure 168/79 H Pulse Oximetry <Marianne Fontaine, - Last Filed: 02/08/25 20:26> Orders Ordered: Discontinued Medications Ondansetron HCl (Ondansetron 4 Mg/2 Ml Inj) 4 mg IV NOW PRN PRN Reason: Nausea And Vomiting Ondansetron HCl (Ondansetron 4 Mg Odt) 4 mg PO NOW PRN PRN Reason: Nausea And Vomiting Vital Signs Vital signs: Vital Signs - 8 hr 02/08/25 13:56 02/08/25 14:00 02/08/25 14:22 Temperature Pulse Rate 77 81 Respiratory Rate 24 Blood Pressure 133/61 Pulse Oximetry 99 100 02/08/25 14:22 02/08/25 14:30 02/08/25 14:30 Temperature Pulse Rate 81 78 Respiratory Rate 20 16 Blood Pressure 121/62 Pulse Oximetry 100 100 02/08/25 15:00 02/08/25 15:00 02/08/25 15:28 Temperature Pulse Rate 78 Respiratory Rate Blood Pressure 123/57 L 136/65 Pulse Oximetry 100 02/08/25 15:28 02/08/25 15:30 02/08/25 15:30 Temperature Pulse Rate 80 81 Respiratory Rate 15 13 Blood Pressure 131/64 Pulse Oximetry 100 100 02/08/25 15:37 02/08/25 15:37 02/08/25 15:42 Temperature 98 F 98 F Pulse Rate 79 79 Respiratory Rate 16 16 Blood Pressure 131/64 131/64 126/63 Pulse Oximetry 02/08/25 15:42 02/08/25 15:45 02/08/25 15:45 Temperature Pulse Rate 79 80 Respiratory Rate 13 15 Blood Pressure 128/61 Pulse Oximetry 100 100 02/08/25 15:56 02/08/25 16:00 02/08/25 16:00 Temperature 97.6 F Pulse Rate 60 80 Respiratory Rate 16 14 Blood Pressure 128/61 129/62 Pulse Oximetry 100 02/08/25 16:15 02/08/25 16:15 02/08/25 16:30 Temperature Pulse Rate 80 76 Respiratory Rate 13 Blood Pressure 128/60 Pulse Oximetry 100 100 02/08/25 16:30 02/08/25 16:45 02/08/25 16:45 Temperature Pulse Rate 80 Respiratory Rate 18 Blood Pressure 137/69 130/64 Pulse Oximetry 100 02/08/25 17:00 02/08/25 17:00 02/08/25 17:30 Temperature Pulse Rate 78 Respiratory Rate 16 Blood Pressure 145/71 H 152/81 H Pulse Oximetry 100 02/08/25 17:30 02/08/25 17:34 02/08/25 17:49 Temperature 98 F 98.4 F Pulse Rate 80 80 74 Respiratory Rate 14 16 16 Blood Pressure 152/81 H 150/74 H Pulse Oximetry 100 02/08/25 20:05 Temperature 97.9 F Pulse Rate 84 Respiratory Rate 16 Blood Pressure 168/79 H Pulse Oximetry MDM - Recheck/Abnormal Lab/Rx <Pao Mas MD - Last Filed: 02/10/25 16:46> Lab Data 02/08/25 10:38 02/08/25 10:40 Labs: Lab Results 02/08/25 02/08/25 02/08/25 Range/Units 10:38 10:40 10:50 WBC 6.6 (4.5-11.0) X10^3/uL RBC 2.10 L (4.5-5.9) X10^6/uL Hgb 7.1 L (13.5-17.5) g/dL Hct 20.2 L* (41-53) % MCV 96.1 (80-100) fL MCH 33.6 (26-34) PG MCHC 35.0 (30-36) % RDW 15.4 H (11.6-14.8) % Plt Count 203 (150-400) X10^3/uL Neut % (Auto) 64.5 (50-75) % Lymph % (Auto) 22.9 L (25-40) % [place] % (Auto) 11.0 (3-14) % Eos % (Auto) 1.4 L (2-4) % Baso % (Auto) 0.2 (0-2) % Neut # (Auto) 4300 (6468-0435) /uL Lymph # (Auto) 1500 (1201-9246) /uL [place] # (Auto) 700 (0-900) /uL Eos # (Auto) 100 (0-450) /uL Baso # (Auto) 0 (0-100) /uL PT 12.4 (9.4-12.5) SECONDS INR 1.1 (0.9-1.3) APTT 33 (25.1-36.5) SECONDS Sodium 136 L (137-145) mmol/L Potassium 4.5 (3.4-5.1) mmol/L Chloride 100 (98-107) mmol/L Carbon Dioxide 28 (22-32) mmol/L BUN 15 (9-20) mg/dL Creatinine 2.21 H (0.66-1.25) mg/dL Estimated GFR 30 L (>60) mL/min BUN/Creatinine Ratio 6.8 (6-22) Glucose 93 (70-99) mg/dL Calcium 8.8 (8.4-10.2) mg/dL Total Bilirubin 0.7 (0.2-1.3) mg/dL AST 23 (17-59) IU/L ALT 12 (<50) IU/L Alkaline Phosphatase 65 (38-126) U/L Total Protein 7.2 (6.3-8.2) g/dL Albumin 3.8 (3.5-5.0) g/dL Globulin 3.4 (1.7-4.1) g/dL Albumin/Globulin Ratio 1.1 (1.0-2.8) Urine RBC (0-5/HPF) Urine WBC (0-5/HPF) Ur Squamous Epith Cells (0-5/HPF) Urine Bacteria (None) Ur Culture Indicated? Vol Urine Centrifuged Blood Type A Positive Antibody Screen Negative Crossmatch See Detail 02/08/25 02/08/25 Range/Units 10:59 15:21 WBC Cancelled (4.5-11.0) X10^3/uL RBC Cancelled (4.5-5.9) X10^6/uL Hgb Cancelled (13.5-17.5) g/dL Hct Cancelled (41-53) % MCV Cancelled (80-100) fL MCH Cancelled (26-34) PG MCHC Cancelled (30-36) % RDW Cancelled (11.6-14.8) % Plt Count Cancelled (150-400) X10^3/uL Neut % (Auto) Cancelled (50-75) % Lymph % (Auto) Cancelled (25-40) % [place] % (Auto) Cancelled (3-14) % Eos % (Auto) Cancelled (2-4) % Baso % (Auto) Cancelled (0-2) % Neut # (Auto) Cancelled (7017-3630) /uL Lymph # (Auto) Cancelled (6173-9640) /uL [place] # (Auto) Cancelled (0-900) /uL Eos # (Auto) Cancelled (0-450) /uL Baso # (Auto) Cancelled (0-100) /uL PT (9.4-12.5) SECONDS INR (0.9-1.3) APTT (25.1-36.5) SECONDS Sodium (137-145) mmol/L Potassium (3.4-5.1) mmol/L Chloride (98-107) mmol/L Carbon Dioxide (22-32) mmol/L BUN (9-20) mg/dL Creatinine (0.66-1.25) mg/dL Estimated GFR (>60) mL/min BUN/Creatinine Ratio (6-22) Glucose (70-99) mg/dL Calcium (8.4-10.2) mg/dL Total Bilirubin (0.2-1.3) mg/dL AST (17-59) IU/L ALT (<50) IU/L Alkaline Phosphatase (38-126) U/L Total Protein (6.3-8.2) g/dL Albumin (3.5-5.0) g/dL Globulin (1.7-4.1) g/dL Albumin/Globulin Ratio (1.0-2.8) Urine RBC None seen (0-5/HPF) Urine WBC 0-1/hpf (0-5/HPF) Ur Squamous Epith Cells None seen (0-5/HPF) Urine Bacteria Occasional (0-1) (None) Ur Culture Indicated? Cult not indicated Vol Urine Centrifuged 10ml (spun) Blood Type Antibody Screen Crossmatch Urine Dip Bedside Urine Glucose Negative Bedside Urine Bilirubin - Negative Bedside Urine Ketone - Negative Urine Specific [place] 1.005 Bedside Urine Occult Blood - Negative Bedside Urine pH 8 Bedside Urine Protein + 30 Bedside Urine Urobilinogen - Negative Bedside Urine Nitrite - Negative Bedside Urine Leukocytes - Negative Esterase MDM Narrative Medical decision making narrative: 75 yo male hx of PE and atrial fibrillation on Eliquis, ESRD on IHD (), referred to ED for blood transfusion after outpatient labs showed Hgb of 6.5. Hgb 7.1 today. We will transfuse 2 units of PRBCs. Pt has no physical complaints and otherwise feels well. Anemia may be 2/2 chronic disease. Denies any bloody stools. Patient remains stable in ED. On recheck he is getting 2nd unit prbcs, eager for discharge. He informs of me of positive hemoccult stool test through PCP office. Denies any grossly bloody stools. Given this new information and anticoagulation status, I did offer admit for endoscopy. Unfortunately pt would require transfer as this hospital has no IHD capability. Pt declines and is adamant will follow up with PCP. 02/08/25 Dr. Fontaine: Patient signed out to myself by Dr. Mas, patient has known chronic kidney disease on dialysis had outpatient labs with a hemoglobin of 7.1 has been sent for transfusion. Patient also noted positive stool occult in the last week with a home test. Dr. Mas and him discussed having and kept in the hospital for scope and workup but we do not have dialysis here and he does not wish to be transferred. Patient prefers to transfuse blood at discharge home knowing risks on Eliquis. Patient was up ambulating without any issue. No shortness of breath no chest pain, he has dialysis tomorrow afternoon. He was follow up this Tuesday with a his primary care physician we will plan to follow up with them to discuss colonoscopy. He did not wish to wait for paperwork and states he will check the portal for papers. Was polite but absolutely did not want to spend the night in the hospital or be transferred. <Marianne Fontaine, DO - Last Filed: 02/08/25 20:26> Lab Data Labs: Lab Results 02/08/25 02/08/25 02/08/25 Range/Units 10:38 10:40 10:50 WBC 6.6 (4.5-11.0) X10^3/uL RBC 2.10 L (4.5-5.9) X10^6/uL Hgb 7.1 L (13.5-17.5) g/dL Hct 20.2 L* (41-53) % MCV 96.1 (80-100) fL MCH 33.6 (26-34) PG MCHC 35.0 (30-36) % RDW 15.4 H (11.6-14.8) % Plt Count 203 (150-400) X10^3/uL Neut % (Auto) 64.5 (50-75) % Lymph % (Auto) 22.9 L (25-40) % [place] % (Auto) 11.0 (3-14) % Eos % (Auto) 1.4 L (2-4) % Baso % (Auto) 0.2 (0-2) % Neut # (Auto) 4300 (8573-7429) /uL Lymph # (Auto) 1500 (8851-2492) /uL [place] # (Auto) 700 (0-900) /uL Eos # (Auto) 100 (0-450) /uL Baso # (Auto) 0 (0-100) /uL PT 12.4 (9.4-12.5) SECONDS INR 1.1 (0.9-1.3) APTT 33 (25.1-36.5) SECONDS Sodium 136 L (137-145) mmol/L Potassium 4.5 (3.4-5.1) mmol/L Chloride 100 (98-107) mmol/L Carbon Dioxide 28 (22-32) mmol/L BUN 15 (9-20) mg/dL Creatinine 2.21 H (0.66-1.25) mg/dL Estimated GFR 30 L (>60) mL/min BUN/Creatinine Ratio 6.8 (6-22) Glucose 93 (70-99) mg/dL Calcium 8.8 (8.4-10.2) mg/dL Total Bilirubin 0.7 (0.2-1.3) mg/dL AST 23 (17-59) IU/L ALT 12 (<50) IU/L Alkaline Phosphatase 65 (38-126) U/L Total Protein 7.2 (6.3-8.2) g/dL Albumin 3.8 (3.5-5.0) g/dL Globulin 3.4 (1.7-4.1) g/dL Albumin/Globulin Ratio 1.1 (1.0-2.8) Urine RBC (0-5/HPF) Urine WBC (0-5/HPF) Ur Squamous Epith Cells (0-5/HPF) Urine Bacteria (None) Ur Culture Indicated? Vol Urine Centrifuged Blood Type A Positive Antibody Screen Negative Crossmatch See Detail 02/08/25 02/08/25 Range/Units 10:59 15:21 WBC Cancelled (4.5-11.0) X10^3/uL RBC Cancelled (4.5-5.9) X10^6/uL Hgb Cancelled (13.5-17.5) g/dL Hct Cancelled (41-53) % MCV Cancelled (80-100) fL MCH Cancelled (26-34) PG MCHC Cancelled (30-36) % RDW Cancelled (11.6-14.8) % Plt Count Cancelled (150-400) X10^3/uL Neut % (Auto) Cancelled (50-75) % Lymph % (Auto) Cancelled (25-40) % [place] % (Auto) Cancelled (3-14) % Eos % (Auto) Cancelled (2-4) % Baso % (Auto) Cancelled (0-2) % Neut # (Auto) Cancelled (0985-8981) /uL Lymph # (Auto) Cancelled (5626-3266) /uL [place] # (Auto) Cancelled (0-900) /uL Eos # (Auto) Cancelled (0-450) /uL Baso # (Auto) Cancelled (0-100) /uL PT (9.4-12.5) SECONDS INR (0.9-1.3) APTT (25.1-36.5) SECONDS Sodium (137-145) mmol/L Potassium (3.4-5.1) mmol/L Chloride (98-107) mmol/L Carbon Dioxide (22-32) mmol/L BUN (9-20) mg/dL Creatinine (0.66-1.25) mg/dL Estimated GFR (>60) mL/min BUN/Creatinine Ratio (6-22) Glucose (70-99) mg/dL Calcium (8.4-10.2) mg/dL Total Bilirubin (0.2-1.3) mg/dL AST (17-59) IU/L ALT (<50) IU/L Alkaline Phosphatase (38-126) U/L Total Protein (6.3-8.2) g/dL Albumin (3.5-5.0) g/dL Globulin (1.7-4.1) g/dL Albumin/Globulin Ratio (1.0-2.8) Urine RBC None seen (0-5/HPF) Urine WBC 0-1/hpf (0-5/HPF) Ur Squamous Epith Cells None seen (0-5/HPF) Urine Bacteria Occasional (0-1) (None) Ur Culture Indicated? Cult not indicated Vol Urine Centrifuged 10ml (spun) Blood Type Antibody Screen Crossmatch Urine Dip Bedside Urine Glucose Negative Bedside Urine Bilirubin - Negative Bedside Urine Ketone - Negative Urine Specific [place] 1.005 Bedside Urine Occult Blood - Negative Bedside Urine pH 8 Bedside Urine Protein + 30 Bedside Urine Urobilinogen - Negative Bedside Urine Nitrite - Negative Bedside Urine Leukocytes - Negative Esterase MDM Narrative Medical decision making narrative: In chart review see hemoglobin of 7.1 today. We will transfuse 2 units of PRBCs and anticipate discharge once complete. 02/08/25 Dr. Fontaine: Patient signed out to myself by Dr. Mas, patient has known chronic kidney disease on dialysis had outpatient labs with a hemoglobin of 7.1 has been sent for transfusion. Patient also noted positive stool occult in the last week with a home test. Dr. Mas and him discussed having and kept in the hospital for scope and workup but we do not have dialysis here and he does not wish to be transferred. Patient prefers to transfuse blood at discharge home knowing risks no Eliquis. Patient was up ambulating without any issue. No shortness of breath no chest pain, he has dialysis tomorrow afternoon. He was follow up this Tuesday with a his primary care physician we will plan to follow up with them to discuss colonoscopy. He did not wish to wait for paperwork and states he will check the portal for papers. Was polite but absolutely did not want to spend the night in the hospital or be transferred. Discharge Plan Departure Patient Disposition: Home Clinical Impression: Anemia, End stage renal disease on dialysis Activity Restrictions/Additional Instructions: You received 2 units of blood in transfusion today. Please let your dialysis team know tomorrow at your regular dialysis. Blood can sometimes cause fluid overload and if you develop new chest pain, shortness of breath, new swelling in your extremities, lightheadedness, fevers or any other new or concerning changes she should return for re-evaluation. It is also important that you follow up with your primary care as you probably should have a colonoscopy you may be having some GI bleeding and being on Eliquis this can increase your risk of bleeding. Prescriptions: No Action brimonidine 0.2 % drops EYE-BOTH TID dorzolamide-timolol (PF) 2-0.5 % drops EYE-BOTH BID latanoprost 0.005 % drops EYE-BOTH DAILY midodrine 10 mg tablet 10 mg PO TID Rx Instructions: Give one tablet by mouth one time a day every Tue, Cora, Sat for hypotension. Give 30 mins before dialysis; hold if systolic BP is above 130. albuterol sulfate 90 mcg/actuation HFA aerosol inhaler 2 puff inhalation Q6H PRN (Reason: shortness of breath or wheezing) Qty: 8.5 0RF amiodarone 200 mg tablet 200 mg PO DAILY Qty: 30 0RF sevelamer carbonate 0.8 gram powder in packet See Rx Instructions .ROUTE .COMPLEX Qty: 90 0RF Rx Instructions: take 1 packet by mouth before meals for ZULEYMA, hyperphosphatemia. apixaban 5 mg tablet 5 mg PO BID Qty: 10 0RF Referrals: Yahir Thornton MD [Primary Care Provider] - Stand Alone Forms: Patient Portal/API/Survey
[2025-02-08 14:38] LABS: Alanine Aminotransferase 12 IU/L (<50); Albumin 3.8 g/dL (3.5-5.0); Albumin Globulin Ratio 1.1 (1.0-2.8); Alkaline Phosphatase 65 U/L (38-126); Aspartate Aminotransferase 23 IU/L (17-59); BUN Creatinine Ratio 6.8 (6-22); Bilirubin Total 0.7 mg/dL (0.2-1.3); Blood Urea Nitrogen 15 mg/dL (9-20); Calcium 8.8 mg/dL (8.4-10.2); Carbon Dioxide 28 mmol/L (22-32); Chloride 100 mmol/L (98-107); Estimated Glomerular Filt Rate 30 mL/min (>60); Globulin 3.4 g/dL (1.7-4.1); Glucose 93 mg/dL (70-99); HEMOLYSIS < 15 (0-50); Potassium 4.5 mmol/L (3.4-5.1); Sodium 136 mmol/L (137-145); Total Protein 7.2 g/dL (6.3-8.2)
[2025-02-08 15:47] LABS: Bacteria Urine Occasional (0-1); Culture Indicated Urine Cult Not Indicated; RBC Urine None Seen (0-5/HPF); Squamous Epithelial Cell Urine None Seen (0-5/HPF); Urine Volume 10mL (spun); WBC Urine 0-1/HPF (0-5/HPF)
== END 2025-02-08 20:18 | disposition home or self-care (01) ==
PROVIDERS: Student in an Organized Health Care Education/Training Program; Emergency Provider Emergency Medicine; PCP Family Medicine
DX: D64.9 Anemia, unspecified (principal); N18.6 End stage renal disease; Z99.2 Dependence on renal dialysis
CPT/HCPCS: 36415; 36430; 80053; 81003; 81015; 85025; 85610; 85730; 86850; 86900; 86901; 96374; 99284; P9016

== ENCOUNTER → 2025-03-05 13:05 | Outpatient (CLI) | payer MEDICARE, OTHER, SELFPAY ==
[2025-03-05 19:24] LABS: Hematocrit 27.6 % (41-53); Hemoglobin 9.3 g/dL (13.5-17.5)
== END ==
PROVIDERS: PCP Family Medicine; Visit Provider Physician Assistant
DX: D64.9 Anemia, unspecified (principal)
CPT/HCPCS: 85014; 85018

== ENCOUNTER → 2025-03-12 13:04 | Outpatient (CLI) | payer MEDICARE, OTHER, SELFPAY ==
[2025-03-12 21:01] LABS: Hematocrit 28.4 % (41-53); Hemoglobin 9.6 g/dL (13.5-17.5)
== END ==
PROVIDERS: PCP Family Medicine; Visit Provider Physician Assistant
DX: D64.9 Anemia, unspecified (principal)
CPT/HCPCS: 85014; 85018

== ENCOUNTER → 2025-03-19 13:03 | Outpatient (CLI) | payer MEDICARE, OTHER, SELFPAY ==
[2025-03-19 19:17] LABS: Hematocrit 28.1 % (41-53); Hemoglobin 9.7 g/dL (13.5-17.5)
== END ==
PROVIDERS: PCP Family Medicine; Visit Provider Physician Assistant
DX: D64.9 Anemia, unspecified (principal)
CPT/HCPCS: 85014; 85018

== ENCOUNTER → 2025-03-26 13:29 | Outpatient (CLI) | payer MEDICARE, OTHER, SELFPAY ==
[2025-03-26 19:17] LABS: Hematocrit 27.7 % (41-53); Hemoglobin 9.4 g/dL (13.5-17.5)
== END ==
PROVIDERS: PCP Family Medicine; Visit Provider Physician Assistant
DX: D64.9 Anemia, unspecified (principal)
CPT/HCPCS: 85014; 85018

== ENCOUNTER → 2025-04-24 12:50 | Outpatient (CLI) | payer MEDICARE, OTHER, SELFPAY ==
[2025-04-24 13:34] LABS: Add Manual Diff / Slide Review NO; Hematocrit 30.5 % (41-53); Hemoglobin 10.4 g/dL (13.5-17.5); Lymphocytes Absolute Auto 1700 /uL (1100-4500); Mean Corpuscular HGB Conc 34.1 % (30-36); Mean Corpuscular Hemoglobin 32.4 PG (26-34); Mean Corpuscular Volume 95.2 fL (80-100); Platelet Count 191 X10^3/uL (150-400)
[2025-04-24 13:54] LABS: Blood Urea Nitrogen 30 mg/dL (9-20); Calcium 9.0 mg/dL (8.4-10.2); Carbon Dioxide 24 mmol/L (22-32); Chloride 106 mmol/L (98-107); Estimated Glomerular Filt Rate 48 mL/min (>60); Glucose 100 mg/dL (70-99); HEMOLYSIS 30 (0-50); Iron 114 ug/dL (49-181); Potassium 4.9 mmol/L (3.4-5.1); Sodium 141 mmol/L (137-145)
[2025-04-24 13:55] LABS: HEMOLYSIS 145 (0-50)
[2025-04-24 14:04] LABS: Percent Iron Saturation 51 % (20-50); Total Iron Binding Capacity 223 ug/dL (261-462); Transferrin 165 mg/dL (206-381)
[2025-04-24 14:44] LABS: Vitamin B12 282 pg/mL (239-931)
== END ==
PROVIDERS: PCP Family Medicine; Referring Provider Family Medicine; Visit Provider Family Medicine
DX: D64.9 Anemia, unspecified (principal); N17.9 Acute kidney failure, unspecified; R19.5 Other fecal abnormalities
CPT/HCPCS: 36415; 80048; 82607; 83540; 83550; 85025

== ENCOUNTER → 2025-05-16 13:01 | Outpatient (CLI) | payer MEDICARE, OTHER, SELFPAY ==
[2025-05-16 19:47] LABS: Hematocrit 31.0 % (41-53); Hemoglobin 10.7 g/dL (13.5-17.5)
== END ==
PROVIDERS: PCP Family Medicine; Visit Provider Physician Assistant
DX: D64.9 Anemia, unspecified (principal); Z79.01 Long term (current) use of anticoagulants
CPT/HCPCS: 85014; 85018

== ENCOUNTER → 2025-06-03 13:03 | Outpatient (CLI) | payer MEDICARE, OTHER, SELFPAY ==
[2025-06-03 19:02] LABS: Add Manual Diff / Slide Review NO; Hematocrit 30.0 % (41-53); Hemoglobin 10.4 g/dL (13.5-17.5); Lymphocytes Absolute Auto 1400 /uL (1100-4500); Mean Corpuscular HGB Conc 34.9 % (30-36); Mean Corpuscular Hemoglobin 32.6 PG (26-34); Mean Corpuscular Volume 93.4 fL (80-100); Platelet Count 206 X10^3/uL (150-400)
[2025-06-03 19:13] LABS: Blood Urea Nitrogen 29 mg/dL (9-20); Calcium 9.1 mg/dL (8.4-10.2); Carbon Dioxide 29 mmol/L (22-32); Chloride 106 mmol/L (98-107); Estimated Glomerular Filt Rate 48 mL/min (>60); Glucose 94 mg/dL (70-99); HEMOLYSIS < 15 (0-50); Potassium 4.7 mmol/L (3.4-5.1); Sodium 141 mmol/L (137-145)
[2025-06-03 20:09] LABS: Vitamin B12 309 pg/mL (239-931)
== END ==
PROVIDERS: PCP Family Medicine; Visit Provider Family Medicine
DX: N17.9 Acute kidney failure, unspecified (principal); R19.5 Other fecal abnormalities
CPT/HCPCS: 80048; 82607; 85025

== ENCOUNTER → 2025-07-01 11:00 | Outpatient (CLI) | payer MEDICARE, OTHER, SELFPAY | PROVIDERS: PCP Family Medicine; Visit Provider Family Medicine | DX: D64.9 Anemia, unspecified (principal); N17.9 Acute kidney failure, unspecified; R19.5 Other fecal abnormalities | CPT/HCPCS: 82274 ==

== ENCOUNTER → 2025-07-25 13:37 | Outpatient (CLI) | payer MEDICARE, OTHER, SELFPAY ==
[2025-07-25 19:10] LABS: Add Manual Diff / Slide Review NO; Hematocrit 35.3 % (41-53); Hemoglobin 12.1 g/dL (13.5-17.5); Lymphocytes Absolute Auto 1300 /uL (1100-4500); Mean Corpuscular HGB Conc 34.3 % (30-36); Mean Corpuscular Hemoglobin 32.4 PG (26-34); Mean Corpuscular Volume 94.4 fL (80-100); Platelet Count 207 X10^3/uL (150-400)
[2025-07-25 19:50] LABS: Blood Urea Nitrogen 25 mg/dL (9-20); Calcium 9.2 mg/dL (8.4-10.2); Carbon Dioxide 29 mmol/L (22-32); Chloride 105 mmol/L (98-107); Estimated Glomerular Filt Rate 52 mL/min (>60); Glucose 137 mg/dL (70-99); HEMOLYSIS < 15 (0-50); Potassium 4.2 mmol/L (3.4-5.1); Sodium 143 mmol/L (137-145)
[2025-07-25 20:32] LABS: Vitamin B12 311 pg/mL (239-931)
== END ==
PROVIDERS: PCP Family Medicine; Visit Provider Family Medicine
DX: N17.9 Acute kidney failure, unspecified (principal); D64.9 Anemia, unspecified
CPT/HCPCS: 80048; 82607; 85025